=== PATIENT | female | born 1970 | race Two or more races ===

== ENCOUNTER 2020-12-19 06:46 | Day surgery (SDC) | payer OTHER | END 2020-12-19 13:15 | disposition home or self-care (01) | LOC: AMB-ENDOS 06:46 | PROVIDERS: ATTEND Surgery | DX: D13.0 Benign neoplasm of esophagus (principal); D13.1 Benign neoplasm of stomach; K44.9 Diaphragmatic hernia without obstruction or gangrene ==

== ENCOUNTER 2023-08-02 06:00 | Day surgery (SDC) | payer OTHER ==
[~2023-08-02 06:00] MED LIST: HYZAAR 50-12.51 EACH PO
== END 2023-08-02 16:15 | disposition home or self-care (01) ==
LOC: CIR.AMB 06:00
PROVIDERS: ATTEND Obstetrics & Gynecology
DX: N84.0 Polyp of corpus uteri (principal); D25.0 Submucous leiomyoma of uterus; Z20.822 Contact with and (suspected) exposure to COVID-19; Z80.6 Family history of leukemia; I10 Essential (primary) hypertension